=== PATIENT | female | born 1945 | race Caucasian/White ===

== ENCOUNTER 2017-01-28 00:26 | Emergency (ER) | payer OTHER ==
[2017-01-28 00:34] VITALS: BMI 24.0
--- NOTE | 2017-01-28 00:49 | PDOC ---
History of Present Illness - General History Source: Patient - History of Present Illness Initial Comments: 01/28/17 02:31 The patient is a 71-year-old female accompanied by daughter with a significant past medical history of stomach ulcers, and presents to the emergency department with chest pain and shortness of breath that worsened 2 hours prior to arrival in the ED. The patient speaks Cypriot. As per translation by the daughter, the patient reports that she has been feeling chest pain, headache, upper back pain, and right upper quadrant pain for the last 2 days, but the pains worsened in the last two hours. She reports that she feels like she couldnt breathe and feels gassy. The patient reports she had hot dogs for dinner. The patient denies palpitations, headache, and dizziness. The patient denies fever, chills, nausea, vomit, diarrhea and constipation. The patient denies dysuria, frequency, urgency and hematuria. Allergies: penicillin Past Surgical History: Social History: Denies any toxic habits PCP: Dr. Roman Bergeron <Tiffanie Ross - Last Filed: 01/28/17 02:31> <Rossy Erickson - Last Filed: 01/28/17 22:18> - General Chief Complaint: Chest Pain Stated Complaint: CHEST PAIN, SOB Time Seen by Provider: 01/28/17 00:49 Past History <Tiffanie Ross - Last Filed: 01/28/17 02:31> - Psycho/Social/Smoking Cessation Hx Suicidal Ideation: No Smoking History: Never smoked Have you smoked in the past 12 months: No Number of Cigarettes Smoked Daily: 0 Hx Alcohol Use: No Drug/Substance Use Hx: No Substance Use Type: None Hx Substance Use Treatment: No <Rossy Erickson - Last Filed: 01/28/17 22:18> - Past Medical History Allergies/Adverse Reactions: Allergies Allergy/AdvReac Type Severity Reaction Status Date / Time Penicillins Allergy Rash Verified 01/28/17 00:33 Home Medications: Ambulatory Orders Esomeprazole Magnesium [Nexium 24Hr] 20 mg PO DAILY 01/28/17 Review of Systems - Review of Systems Able to Perform ROS?: Yes Comments:: 01/28/17 02:31 CONSTITUTIONAL: Absent: fever, chills, diaphoresis, generalized weakness, malaise, loss of appetite HEENT: Absent: rhinorrhea, nasal congestion, throat pain, throat swelling, difficulty swallowing, mouth swelling, ear pain, eye pain, visual changes CARDIOVASCULAR: Present: (+) chest pain Absent: syncope, palpitations, irregular heart rate, lightheadedness, peripheral edema RESPIRATORY: Present: (+) shortness of breath Absent: cough, dyspnea with exertion, orthopnea, wheezing, stridor, hemoptysis GASTROINTESTINAL: Present: (+) abdominal pain Absent: abdominal distension, nausea, vomiting, diarrhea, constipation, melena, hematochezia GENITOURINARY: Absent: dysuria, frequency, urgency, hesitancy, hematuria, flank pain, genital pain MUSCULOSKELETAL: Present: (+) back pain Absent: myalgia, arthralgia, joint swelling SKIN: Absent: rash, itching, pallor HEMATOLOGIC/IMMUNOLOGIC: Absent: easy bleeding, easy bruising, lymphadenopathy, frequent infections ENDOCRINE: Absent: unexplained weight gain, unexplained weight loss, heat intolerance, cold intolerance NEUROLOGIC: Present: (+) headache Absent: focal weakness or paresthesias, dizziness, unsteady gait, seizure, mental status changes, bladder or bowel incontinence PSYCHIATRIC: Absent: anxiety, depression, suicidal or homicidal ideation, hallucinations. <Tiffanie Ross - Last Filed: 01/28/17 02:31> *Physical Exam - Vital Signs Last Vital Signs Temp Pulse Resp BP Pulse Ox 97.6 F 85 18 163/87 98 01/28/17 00:32 01/28/17 00:32 01/28/17 00:32 01/28/17 00:32 01/28/17 00:32 - Physical Exam Comments: 01/28/17 02:31 GENERAL: Well developed, well nourished. Awake and alert. No acute distress. HEENT: Normocephalic, atraumatic. PERRLA, EOMI. No conjunctival pallor. Sclera are non- icteric. Moist mucous membranes. Oropharynx is clear. NECK: Supple. Full ROM. No JVD. Carotid pulses 2+ and symmetric, without bruits. No thyromegaly. No lymphadenopathy. CARDIOVASCULAR: Regular rate and rhythm. No murmurs, rubs, or gallops. Distal pulses are 2+ and symmetric. PULMONARY: No evidence of respiratory distress. Lungs clear to auscultation bilaterally. No wheezing, rales or rhonchi. ABDOMINAL: Soft. Non-tender. Non-distended. No rebound or guarding. No organomegaly. Normoactive bowel sounds. MUSCULOSKELETAL Normal range of motion at all joints. No bony deformities or tenderness. No CVA tenderness. EXTREMITIES: No cyanosis. No clubbing. No edema. No calf tenderness. SKIN: Warm and dry. Normal capillary refill. No rashes. No jaundice. NEUROLOGICAL: Alert, awake, appropriate. Cranial nerves 2-12 intact. No deficits to light touch and temperature in face, upper extremities and lower extremities. No motor deficits in the in face, upper extremities and lower extremities. Normoreflexic in the upper and lower extremities. Normal speech. Toes are down- going bilaterally. Gait is normal without ataxia. PSYCHIATRIC: Cooperative. Good eye contact. Appropriate mood and affect. <Tiffanie Ross - Last Filed: 01/28/17 02:31> - Vital Signs Last Vital Signs Temp Pulse Resp BP Pulse Ox 97.6 F 85 18 163/87 98 01/28/17 00:32 01/28/17 00:32 01/28/17 00:32 01/28/17 00:32 01/28/17 00:32 <Rossy Erickson - Last Filed: 01/28/17 22:18> ED Treatment Course - LABORATORY CBC & Chemistry Diagram: 01/28/17 00:45 01/28/17 00:45 - ADDITIONAL ORDERS Additional order review: Laboratory Results 01/28/17 01/28/17 01/28/17 00:45 00:45 00:45 INR 1.13 Sodium 142 Potassium 3.8 Chloride 106 Carbon Dioxide 25 Anion Gap 11 BUN 23 H D Creatinine 0.5 L D Creat Clearance w eGFR > 60 Random Glucose 113 H Calcium 8.9 D Total Bilirubin 0.8 D AST 16 D ALT 21 D Alkaline Phosphatase 107 D Creatine Kinase 74 Troponin I < 0.02 B-Natriuretic Peptide 32.59 Total Protein 7.6 Albumin 3.8 01/28/17 00:45 RBC 3.81 MCV 94.4 MCHC 33.6 RDW 13.2 MPV 8.7 D Neutrophils % 66.4 D Lymphocytes % 28.2 D Monocytes % 4.8 Eosinophils % 0.1 D Basophils % 0.5 <Tiffanie Ross - Last Filed: 01/28/17 02:31> - LABORATORY CBC & Chemistry Diagram: 01/28/17 00:45 01/28/17 00:45 <Rossy Erickson - Last Filed: 01/28/17 22:18> Medical Decision Making - Medical Decision Making 01/28/17 22:04 Pt comes with epigastric pain that has been getting progressively worse over the past 2 days. However her BP is elevated and she is 71 years old, and she is under stress in that her left for a vacation in their hometown of [place] today. She has no Past medical history other than GERD. She had 2 cardiac enzymes and EKG and labs and cxr are normal. Pt will be cleared as she has remained stable in the ER and she is feeling better with treatment here. She has been advised to follow with her PMD. <Rossy Erickson - Last Filed: 01/28/17 22:18> *DC/Admit/Observation/Transfer - Attestations Scribe Attestion: 01/28/17 02:32 Documentation prepared by Tiffanie Ross, acting as certified court/medical interpreter for Rossy Erickson MD. <Tiffanie Ross - Last Filed: 01/28/17 02:31> - Discharge Dispostion Admit: No <Rossy Erickson - Last Filed: 01/28/17 22:18> Diagnosis at time of Disposition: GERD (gastroesophageal reflux disease), Atypical chest pain - Discharge Dispostion Disposition: HOME Condition at time of disposition: Stable - Referrals Referrals: Roman Bergeron [Primary Care Provider] - - Patient Instructions Printed Discharge Instructions: DI for Atypical Chest Pain, DI for Gastroesophageal Reflux Disease (GERD)
[2017-01-28 01:19] LABS: BASOPHIL 0.5 % (0-2.0); EOSINOPHIL 0.1 % (0-4.5); MCH 31.7 pg (25.7-33.7); MCHC 33.6 g/dl (32.0-36.0); MEAN CELL VOLUME 94.4 fl (80-96); MEAN PLT VOLUME 8.7 fl (7.5-11.1); NEUTROPHILS 66.4 % (42.8-82.8); PLATELET COUNT 265 K/MM3 (134-434); RDW 13.2 % (11.6-15.6); WHITE BLOOD COUNT 5.8 K/mm3 (4.0-10.0)
[2017-01-28 01:39] LABS: INR 1.13 (0.82-1.09); PROTHROMBIN TIME (PATIENT) 12.5 SEC (9.98-11.88)
[2017-01-28 01:47] LABS: ALBUMIN 3.8 g/dl (3.4-5.0); ANION GAP 11 (8-16); BILIRUBIN,TOTAL 0.8 mg/dL (0.2-1.0); CALCIUM 8.9 mg/dL (8.5-10.1); CO2 25 mmol/L (21-32); CREATININE 0.5 mg/dL (0.55-1.02); GLUCOSE,RANDOM 113 mg/dL (74-106); SGOT/AST 16 U/L (15-37); SGPT/ALT 21 U/L (12-78); TOT PROT 7.6 g/dl (6.4-8.2)
[2017-01-28 01:50] LABS: ALK PHOS 107 U/L (45-117); TROPONIN I < 0.02 ng/ml (0.00-0.05)
[2017-01-28] MEDS ORDERED: PANTOPRAZOLE SODIUM 80 MG in SODIUM CHLORIDE 100 ML IVPB ONE (02:29)
[2017-01-28] MEDS ORDERED: PANTOPRAZOLE SODIUM 200 ML IVPB ONE (02:33)
[2017-01-28 05:11] VITALS: BP 127/68; PULSE 73; TEMP 97.8
[2017-01-28 06:23] LABS: TROPONIN I < 0.02 ng/ml (0.00-0.05)
--- NOTE | 2017-01-29 00:05 | EKG ---
Test Reason : Blood Pressure : / mmHG Vent. Rate : 087 BPM Atrial Rate : 087 BPM P-R Int : 138 ms QRS Dur : 064 ms QT Int : 364 ms P-R-T Axes : -12 026 -11 degrees QTc Int : 438 ms NORMAL SINUS RHYTHM NONSPECIFIC ST ABNORMALITY ABNORMAL ECG WHEN COMPARED WITH ECG OF 15-MAY-2015 09:48, NO SIGNIFICANT CHANGE WAS FOUND Confirmed by LEATHA BELL MD ([id number]) on 01/29/2017 12:04:54 AM Referred By: Confirmed By:LEATHA BELL MD
== END 2017-01-28 06:39 | disposition home or self-care (01) ==
LOC: JER 00:26
PROC: 3E033GC Introduction of Other Therapeutic Substance into Peripheral Vein, Percutaneous Approach (ICD-10-PCS; principal; 2017-01-28)
DX: K21.9 Gastro-esophageal reflux disease without esophagitis (principal); R07.89 Other chest pain
CPT/HCPCS: 36415; 71010-TC; 80053; 82550; 83880; 84484; 85025; 85610; 93005; 93010; 96365; 99284-25

== ENCOUNTER 2017-07-28 20:31 | Emergency (ER) | payer OTHER ==
[2017-07-28 20:48] VITALS: TEMP 98.6; BMI 24.6
[2017-07-28] MEDS ORDERED: FAMOTIDINE 20 MG/50 ML IVPB 50 ML IVPB ONE ×2 (21:27→21:30)
[2017-07-28] MEDS ORDERED: ONDANSETRON 4 MG/2 ML VIAL IVPUSH ONE (21:27)
[2017-07-28] MEDS ORDERED: BISMUTH SUBSALICYLATE 262 MG/15 ML BTL PO ONE (21:27)
[2017-07-28] MEDS ORDERED: SODIUM CHLORIDE 1,000 ML IV STA (21:28)
--- NOTE | 2017-07-28 21:28 | PDOC ---
History of Present Illness - General Chief Complaint: Nausea Stated Complaint: STOMACH PAIN Time Seen by Provider: 07/28/17 20:43 History Source: Patient Exam Limitations: No Limitations Past History - Past Medical History Allergies/Adverse Reactions: Allergies Allergy/AdvReac Type Severity Reaction Status Date / Time Penicillins Allergy Rash Verified 07/28/17 20:44 Home Medications: Ambulatory Orders Esomeprazole Magnesium [Nexium 24Hr] 20 mg PO DAILY 01/28/17 - Suicide/Smoking/Psychosocial Hx Smoking History: Never smoked Have you smoked in the past 12 months: No Number of Cigarettes Smoked Daily: 0 Hx Alcohol Use: No Drug/Substance Use Hx: No Substance Use Type: None Hx Substance Use Treatment: No Review of Systems - Review of Systems Able to Perform ROS?: Yes Comments:: 07/29/17 07:29 CONSTITUTIONAL: Absent: fever, chills, diaphoresis, generalized weakness, malaise, loss of appetite HEENT: Absent: rhinorrhea, nasal congestion, throat pain, throat swelling, difficulty swallowing, mouth swelling, ear pain, eye pain, visual Changes CARDIOVASCULAR: Absent: chest pain, loss of consciousness, palpitations, irregular heart rate, peripheral edema RESPIRATORY: Absent: cough, shortness of breath, dyspnea with exertion, orthopnea, wheezing, stridor, hemoptysis GASTROINTESTINAL: Absent: abdominal pain, abdominal distension, nausea, vomiting, diarrhea, constipation, melena, hematochezia GENITOURINARY: Absent: dysuria, frequency, urgency, hesitancy, hematuria, flank pain, genital pain MUSCULOSKELETAL: Absent: myalgia, arthralgia, joint swelling SKIN: Absent: rash, itching, pallor HEMATOLOGIC/IMMUNOLOGIC: Absent: easy bleeding, easy bruising, lymphadenopathy, frequent infections ENDOCRINE: Absent: unexplained weight gain, unexplained weight loss, heat intolerance, cold intolerance NEUROLOGIC: Absent: headache, focal weakness or paresthesias, dizziness, unsteady gait, seizure, mental status changes, bladder or bowel incontinence PSYCHIATRIC: Absent: anxiety, depression, suicidal or homicidal ideation, hallucinations. Is the patient limited Nepalese proficient: No *Physical Exam - Vital Signs Last Vital Signs Temp Pulse Resp BP Pulse Ox 98.6 F 103 H 16 132/80 98 07/28/17 20:44 07/28/17 20:44 07/28/17 20:44 07/28/17 20:44 07/28/17 20:44 - Physical Exam Comments: 07/29/17 07:29 GENERAL: Well developed, well nourished. Awake and alert. No acute distress. HEENT: Normocephalic, atraumatic. PERRLA, EOMI. No conjunctival pallor. Sclera are non- icteric. Moist mucous membranes. Oropharynx is clear. NECK: Supple. Full ROM. No JVD. Carotid pulses 2+ and symmetric, without bruits. No thyromegaly. No lymphadenopathy. CARDIOVASCULAR: Regular rate and rhythm. No murmurs, rubs, or gallops. Distal pulses are 2+ and symmetric. PULMONARY: No evidence of respiratory distress. Lungs clear to auscultation bilaterally. No wheezing, rales or rhonchi. ABDOMINAL: Soft. Non-tender. Non-distended. No rebound or guarding. No organomegaly. Normoactive bowel sounds. MUSCULOSKELETAL Normal range of motion at all joints. No bony deformities or tenderness. No CVA tenderness. EXTREMITIES: No cyanosis. No clubbing. No edema. No calf tenderness. SKIN: Warm and dry. Normal capillary refill. No rashes. No jaundice. NEUROLOGICAL: Alert, awake, appropriate. Cranial nerves 2-12 intact. No deficits to light touch and temperature in face, upper extremities and lower extremities. No motor deficits in the in face, upper extremities and lower extremities. Normoreflexic in the upper and lower extremities. Normal speech. Toes are down- going bilaterally. Gait is normal without ataxia. PSYCHIATRIC: Cooperative. Good eye contact. Appropriate mood and affect. ED Treatment Course - LABORATORY CBC & Chemistry Diagram: 07/28/17 21:41 07/28/17 21:41 *DC/Admit/Observation/Transfer Diagnosis at time of Disposition: GERD (gastroesophageal reflux disease) Qualifiers: Esophagitis presence: with esophagitis Qualified Code(s): K21.0 - Gastro- esophageal reflux disease with esophagitis - Discharge Dispostion Admit: No - Referrals Referrals: Carlos Abreu MD [Staff Physician] - - Patient Instructions Printed Discharge Instructions: DI for Gastritis, DI for Gastroesophageal Reflux Disease (GERD), GERD Diet Additional Instructions: You have gastritis, with reflux. It is important that you continue taking your home dose of Nexium. You were prescribed Zantac as well. Take this medication twice a day for the reflux. Drink plenty of water. 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 Return to the ED if you have worsening pain, nausea, vomiting, or any changes in your symptoms Usted tiene gastritis, con reflujo. Es importante que contine tomando torres dosis casera de Nexium. Tambin te recetaron Zantac. [place] indira medicamento dos veces al da para el reflujo. Beber abundante agua. Seguimiento con torres gastroenter logo el . Regrese al departamento de emergencias si tiene un empeoramiento del dolor, n useas, vmitos o cualquier cambio en kita sntomas Print Language: BULGARIAN
[2017-07-28] MEDS ORDERED: ONDANSETRON 4 MG/2 ML VIAL ONE (21:30)
[2017-07-28 21:49] LABS: BASOPHIL 0.3 % (0-2.0); EOSINOPHIL 0.2 % (0-4.5); MCH 32.6 pg (25.7-33.7); MCHC 34.5 g/dl (32.0-36.0); MEAN CELL VOLUME 94.6 fl (80-96); MEAN PLT VOLUME 8.6 fl (7.5-11.1); NEUTROPHILS 84.3 % (42.8-82.8); PLATELET COUNT 265 K/MM3 (134-434); RDW 12.9 % (11.6-15.6); WHITE BLOOD COUNT 7.3 K/mm3 (4.0-10.0)
[2017-07-28 21:57] LABS: URINE APPEARANCE CLEAR; URINE BILIRUBIN NEGATIVE (NEGATIVE); URINE BLOOD NEGATIVE (NEGATIVE); URINE COLOR LTYELLOW; URINE GLUCOSE (UA) NEGATIVE (NEGATIVE); URINE KETONE NEGATIVE (NEGATIVE); URINE NITRITE NEGATIVE (NEGATIVE); URINE PROTEIN NEGATIVE (NEGATIVE); URINE UROBILINOGEN NEGATIVE mg/dL (0.2-1.0)
[2017-07-28 21:59] LABS: INR 1.09 (0.82-1.09); PROTHROMBIN TIME (PATIENT) 12.3 SEC (9.98-11.88)
[2017-07-28 22:09] LABS: ALBUMIN 3.7 g/dl (3.4-5.0); ANION GAP 5 (8-16); BILIRUBIN,TOTAL 0.9 mg/dL (0.2-1.0); CALCIUM 8.2 mg/dL (8.5-10.1); CO2 28 mmol/L (21-32); CREATININE 0.5 mg/dL (0.55-1.02); GLUCOSE,RANDOM 121 mg/dL (74-106); SGOT/AST 13 U/L (15-37); SGPT/ALT 19 U/L (12-78); TOT PROT 7.5 g/dl (6.4-8.2)
[2017-07-28 22:10] LABS: ALK PHOS 117 U/L (45-117)
[2017-07-28 22:17] LABS: CPK 45 IU/L (26-192)
[2017-07-28 22:18] LABS: TROPONIN I < 0.02 ng/ml (0.00-0.05)
--- NOTE | 2017-07-28 22:42 | PDOC ---
*Physical Exam - Vital Signs Last Vital Signs Temp Pulse Resp BP Pulse Ox 98.6 F 103 H 16 132/80 98 07/28/17 20:44 07/28/17 20:44 07/28/17 20:44 07/28/17 20:44 07/28/17 20:44 Heart Score/ECG Review #1 ECG reviewed & interpreted by me at: 22:00 07/28/17 22:42 NSR 88, no std/rtudi, TWI III, normal axis, normal intervals, QTC 442 msec ED Treatment Course - LABORATORY CBC & Chemistry Diagram: 07/28/17 21:41 07/28/17 21:41 - ADDITIONAL ORDERS Additional order review: Laboratory Results 07/28/17 07/28/17 07/28/17 21:51 21:41 21:41 PT with INR INR Sodium Potassium Chloride Carbon Dioxide Anion Gap BUN Creatinine Creat Clearance w eGFR Random Glucose Calcium Total Bilirubin AST ALT Alkaline Phosphatase Creatine Kinase 45 Troponin I < 0.02 Total Protein Albumin Lipase 88 Urine Color Ltyellow Urine Appearance Clear Urine pH 7.0 Urine Protein Negative Urine Glucose (UA) Negative Urine Ketones Negative Urine Blood Negative Urine Nitrite Negative Urine Bilirubin Negative Urine Urobilinogen Negative 07/28/17 07/28/17 21:41 21:41 PT with INR 12.30 H INR 1.09 Sodium 139 Potassium 3.7 Chloride 106 Carbon Dioxide 28 Anion Gap 5 L BUN 11 D Creatinine 0.5 L Creat Clearance w eGFR > 60 Random Glucose 121 H Calcium 8.2 L Total Bilirubin 0.9 AST 13 L ALT 19 Alkaline Phosphatase 117 Creatine Kinase Troponin I Total Protein 7.5 Albumin 3.7 Lipase Urine Color Urine Appearance Urine pH Urine Protein Urine Glucose (UA) Urine Ketones Urine Blood Urine Nitrite Urine Bilirubin Urine Urobilinogen 07/28/17 21:41 RBC 3.89 MCV 94.6 MCHC 34.5 RDW 12.9 MPV 8.6 Neutrophils % 84.3 H D Lymphocytes % 11.2 D Monocytes % 4.0 Eosinophils % 0.2 D Basophils % 0.3 - Medications Given in the ED: ED Medications Discontinued Medications Generic Name Dose Route Start Last Admin Trade Name Freq PRN Reason Stop Dose Admin Famotidine/Sodium Chloride 50 mls @ 100 mls/hr 07/28/17 21:27 07/28/17 21:46 Pepcid 20 Mg Premixed Ivpb - IVPB 07/28/17 21:56 100 mls/hr ONCE ONE Administration Sodium Chloride 1,000 mls @ 1,000 mls/hr 07/28/17 21:28 07/28/17 21:46 Normal Saline - IV 07/28/17 22:27 1,000 mls/hr ASDIR STA Administration Ondansetron HCl 4 mg 07/28/17 21:27 07/28/17 21:46 Zofran Injection IVPUSH 07/28/17 21:28 4 mg ONCE ONE Administration Medical Decision Making - Medical Decision Making 07/28/17 22:39 Pt seen by the Advanced Practice Provider under my direct supervision Pt interviewed and examined Ancillary studies reviewed I agree with plan as outlined by the Advanced Practice Provider [email or web address] Sims Vital Signs Temp Pulse Resp BP Pulse Ox 98.6 F 103 H 16 132/80 98 07/28/17 20:44 07/28/17 20:44 07/28/17 20:44 07/28/17 20:44 07/28/17 20:44 72-year-old female with past medical history of GERD presents with epigastric pain approximately one hour prior to arrival. The patient reports she was doing nothing in particular when she started developing this epigastric like burning pain. She states that this pain radiates towards her whole diffuse abdomen. Denies nausea, vomiting, diarrhea. Denies fevers or chills. The pain is constant and is not relieved and came to the ED. ABD: soft, TTP epigastric. no rebound, no guarding. Cardozo sign negative The patient overall is nontender but does have some discomfort elicited at the epigastrium. However, the patient does report of having diffuse abdominal discomfort. Differential includes gastritis, biliary colic, pancreatitis, other acute abdominal pathology. We'll trial GERD medications obtain a CT scan labs. Given the abdominal tenderness, I suspect that this is more GI and unlikely to be cardiac. ECG is reassuring and troponin is negativel. 07/29/17 00:26 CBC, BMP 07/28/17 21:41 07/28/17 21:41 CMP Sodium 139 mmol/L (136-145) 07/28/17 21:41 Potassium 3.7 mmol/L (3.5-5.1) 07/28/17 21:41 Chloride 106 mmol/L (98-107) 07/28/17 21:41 Carbon Dioxide 28 mmol/L (21-32) 07/28/17 21:41 Anion Gap 5 (8-16) L 07/28/17 21:41 BUN 11 mg/dL (7-18) D 07/28/17 21:41 Creatinine 0.5 mg/dL (0.55-1.02) L 07/28/17 21:41 Creat Clearance w eGFR > 60 (>60) 07/28/17 21:41 Random Glucose 121 mg/dL (74-106) H 07/28/17 21:41 Calcium 8.2 mg/dL (8.5-10.1) L 07/28/17 21:41 Total Bilirubin 0.9 mg/dL (0.2-1.0) 07/28/17 21:41 AST 13 U/L (15-37) L 07/28/17 21:41 ALT 19 U/L (12-78) 07/28/17 21:41 Alkaline Phosphatase 117 U/L (45-117) 07/28/17 21:41 Creatine Kinase 45 IU/L (26-192) 07/28/17 21:41 Troponin I < 0.02 ng/ml (0.00-0.05) 07/28/17 21:41 Total Protein 7.5 g/dl (6.4-8.2) 07/28/17 21:41 Albumin 3.7 g/dl (3.4-5.0) 07/28/17 21:41 Lipase 88 U/L (73-393) 07/28/17 21:41 Urine Test Results Urine Color Ltyellow 07/28/17 21:51 Urine Appearance Clear 07/28/17 21:51 Urine pH 7.0 (5.0-8.0) 07/28/17 21:51 Ur Specific [place] 1.010 (1.005-1.025) 07/28/17 21:51 Urine Protein Negative (NEGATIVE) 07/28/17 21:51 Urine Glucose (UA) Negative (NEGATIVE) 07/28/17 21:51 Urine Ketones Negative (NEGATIVE) 07/28/17 21:51 Urine Blood Negative (NEGATIVE) 07/28/17 21:51 Urine Nitrite Negative (NEGATIVE) 07/28/17 21:51 Urine Bilirubin Negative (NEGATIVE) 07/28/17 21:51 Ur Leukocyte Esterase Trace (NEGATIVE) H 07/28/17 21:51 CT scan demonstrates: thickened distal thoracic esophagus may reflect a component of esophagitis. It may be possible secondary to GERD. If patient's GERD is better with GERD medications, will d/c with GI follow up with outpatient endoscopy.
[2017-07-28 23:29] LABS: URINE LEUK ESTERASE TRACE (NEGATIVE)
[2017-07-29 01:20] VITALS: BP 138/83; PULSE 93
--- NOTE | 2017-07-29 09:05 | EKG ---
Test Reason : Blood Pressure : / mmHG Vent. Rate : 088 BPM Atrial Rate : 088 BPM P-R Int : 128 ms QRS Dur : 064 ms QT Int : 366 ms P-R-T Axes : 015 006 010 degrees QTc Int : 442 ms NORMAL SINUS RHYTHM NORMAL ECG WHEN COMPARED WITH ECG OF 28-JAN-2017 00:46, NO SIGNIFICANT CHANGE WAS FOUND Confirmed by SHIRLEY PIÑA MD ([id number]) on 07/29/2017 9:04:55 AM Referred By: Confirmed By:SHIRLEY PIÑA MD
== END 2017-07-29 01:20 | disposition home or self-care (01) ==
LOC: JER 20:31
PROC: 3E0337Z Introduction of Electrolytic and Water Balance Substance into Peripheral Vein, Percutaneous Approach (ICD-10-PCS; principal; 2017-07-28)
PROC: 3E033GC Introduction of Other Therapeutic Substance into Peripheral Vein, Percutaneous Approach (ICD-10-PCS; 2017-07-28)
PROC: 3E033GC Introduction of Other Therapeutic Substance into Peripheral Vein, Percutaneous Approach (ICD-10-PCS; 2017-07-28)
DX: K21.9 Gastro-esophageal reflux disease without esophagitis (principal)
CPT/HCPCS: 36415; 74177-TC; 80053; 81003; 81015; 82550; 83690; 84484; 85025; 85610; 87086; 93005; 93010; 96361; 96365; 96375; 99282-25

== ENCOUNTER 2019-03-17 21:59 | Emergency (ER) | payer OTHER ==
[2019-03-17 22:14] VITALS: BMI 26.9
--- NOTE | 2019-03-17 22:15 | PDOC ---
History of Present Illness - General Chief Complaint: Pain Stated Complaint: ABDOMINAL PAIN/LEFT SIDE Time Seen by Provider: 03/17/19 22:15 - History of Present Illness Initial Comments: 03/17/19 22:16 Ms. Bryant is a 73 yo female w/ pmh of esophagitis, reflux, and stomach ulcers who presents for evaluation of sudden onset LLQ abdominal pain she reports is radiating to her L flank since 4pm today. Patient reports it has been intermittently painful since it started. She took 2 advil at that time however reports no improvement of pain. Ms. Bryant reports pain is 8/10 when it is flaring up. Last BM was yesterday and normal. Patient denies any other associated symptoms at this time. The patient denies chest pain, shortness of breath, headache and dizziness. Denies fever, chills, nausea, vomit, diarrhea and constipation. Denies dysuria, frequency, urgency and hematuria. Past History - Past Medical History Allergies/Adverse Reactions: Allergies Allergy/AdvReac Type Severity Reaction Status Date / Time Penicillins Allergy Rash Verified 03/17/19 22:14 Home Medications: Ambulatory Orders Esomeprazole Magnesium [Nexium 24Hr] 20 mg PO DAILY 01/28/17 Sulfamethoxazole/Trimethoprim [Bactrim Ds -] 1 tab PO BID #14 tablet 03/18/19 COPD: No - Suicide/Smoking/Psychosocial Hx Smoking History: Never smoked Have you smoked in the past 12 months: No Number of Cigarettes Smoked Daily: 0 Information on smoking cessation initiated: No Hx Alcohol Use: No Drug/Substance Use Hx: No Substance Use Type: None Hx Substance Use Treatment: No Review of Systems - Review of Systems Comments:: 03/17/19 22:17 GENERAL/CONSTITUTIONAL: No fever or chills. No weakness. HEAD, EYES, EARS, NOSE AND THROAT: No change in vision. No ear pain or discharge. No sore throat. CARDIOVASCULAR: No chest pain or shortness of breath RESPIRATORY: No cough, wheezing, or hemoptysis. GASTROINTESTINAL: +LLQ pain radiating to L flank. No nausea, vomiting, diarrhea or constipation. GENITOURINARY: No dysuria, frequency, or change in urination. MUSCULOSKELETAL: No joint or muscle swelling or pain. No neck or back pain. SKIN: No rash NEUROLOGIC: No headache, vertigo, loss of consciousness, or change in strength/ sensation. ENDOCRINE: No increased thirst. No abnormal weight change HEMATOLOGIC/LYMPHATIC: No anemia, easy bleeding, or history of blood clots. ALLERGIC/IMMUNOLOGIC: No hives or skin allergy. *Physical Exam - Vital Signs Last Vital Signs Temp Pulse Resp BP Pulse Ox 98.5 F 87 18 163/85 100 03/17/19 22:12 03/17/19 22:12 03/17/19 22:12 03/17/19 22:12 03/17/19 22:12 - Physical Exam Comments: 03/17/19 22:17 GENERAL: Awake, alert, and fully oriented, in no acute distress HEAD: No signs of trauma, normocephalic, atraumatic EYES: PERRLA, EOMI, sclera anicteric, conjunctiva clear ENT: Auricles normal inspection, hearing grossly normal, nares patent, oropharynx clear without exudates. Moist mucosa NECK: Normal ROM, supple, no lymphadenopathy, JVD, or masses LUNGS: No distress, speaks full sentences, clear to auscultation bilaterally HEART: Regular rate and rhythm, normal S1 and S2, no murmurs, rubs or gallops, peripheral pulses normal and equal bilaterally. ABDOMEN: +LLQ TTP. L flank tenderness. Soft, normoactive bowel sounds. No guarding, no rebound. No masses EXTREMITIES: Normal inspection, Normal range of motion, no edema. No clubbing or cyanosis. NEUROLOGICAL: Cranial nerves II through XII grossly intact. Normal speech, normal gait, no focal sensorimotor deficits SKIN: Warm, Dry, normal turgor, no rashes or lesions noted. ED Treatment Course - LABORATORY CBC & Chemistry Diagram: 03/17/19 22:30 03/17/19 22:30 Medical Decision Making - Medical Decision Making 03/17/19 22:34 Ms. Bryant is a 73 yo female w/ pmh as described who presents for evaluation of symptoms concerning for UTI vs. pyelo vs. nephrolithiasis. Patient workup started with CBC/CMP for evaluation of infectious vs. electrolyte abnormalities as well as UA/UCx for r/o UTI vs. nephrolithiasis. CT Spiral ordered for evaluation of possible kidney stone. Toradol given for pain control. 03/18/19 00:54 Patient reporting relief from pain at this time. UA c/w nephrolithiasis/UTI as below. CT significant for mild left hydronephrosis and perinephric inflammation due to 3mm distal UVJ stone. Left adrenal adenoma and small hiatal hernia also noted. Patient alert and oriented. Able to tolerate PO. IV ABX given in ED. Will discharge with oral ABX and urology follow-up. No concern for emergent process at this time. Discharging to home. Laboratory Results - last 24 hr 03/17/19 03/17/19 03/17/19 22:30 22:30 22:30 WBC 8.0 RBC 3.72 Hgb 11.9 Hct 35.5 MCV 95.6 MCH 32.1 MCHC 33.6 RDW 13.3 Plt Count 307 MPV 8.8 Absolute Neuts (auto) 6.3 Neutrophils % 78.6 Lymphocytes % 15.5 D Monocytes % 5.4 Eosinophils % 0.2 Basophils % 0.3 Nucleated RBC % 0 PT with INR 12.50 INR 1.06 PTT (Actin FS) 31.3 Sodium Potassium Chloride Carbon Dioxide Anion Gap BUN Creatinine Est GFR (CKD-EPI)AfAm Est GFR (CKD-EPI)NonAf Random Glucose Calcium Total Bilirubin AST ALT Alkaline Phosphatase Total Protein Albumin Urine Color Yellow Urine Appearance Clear Urine pH 6.0 Ur Specific [place] 1.032 Urine Protein Trace Urine Glucose (UA) 2+ H Urine Ketones Trace H Urine Blood 2+ H Urine Nitrite Negative Urine Bilirubin Negative Urine Urobilinogen 1.0 Ur Leukocyte Esterase 2+ H Urine WBC (Auto) 107 Urine RBC (Auto) 37 Urine Casts (Auto) 29 U Pathogenic Cast Auto No Result Required. U Epithel Cells (Auto) 0.7 U Sm Round Cell (Auto) No Result Required. Urine Crystals (Auto) No Result Required. Urine Bacteria (Auto) 127.5 03/17/19 22:30 WBC RBC Hgb Hct MCV MCH MCHC RDW Plt Count MPV Absolute Neuts (auto) Neutrophils % Lymphocytes % Monocytes % Eosinophils % Basophils % Nucleated RBC % PT with INR INR PTT (Actin FS) Sodium 142 Potassium 4.1 Chloride 109 H Carbon Dioxide 25 Anion Gap 8 BUN 19.5 H Creatinine 1.0 Est GFR (CKD-EPI)AfAm 65.18 Est GFR (CKD-EPI)NonAf 56.24 Random Glucose 165 H Calcium 8.5 Total Bilirubin 0.4 AST 15 ALT 18 Alkaline Phosphatase 104 Total Protein 7.5 Albumin 3.8 Urine Color Urine Appearance Urine pH Ur Specific [place] Urine Protein Urine Glucose (UA) Urine Ketones Urine Blood Urine Nitrite Urine Bilirubin Urine Urobilinogen Ur Leukocyte Esterase Urine WBC (Auto) Urine RBC (Auto) Urine Casts (Auto) U Pathogenic Cast Auto U Epithel Cells (Auto) U Sm Round Cell (Auto) Urine Crystals (Auto) Urine Bacteria (Auto) *DC/Admit/Observation/Transfer Diagnosis at time of Disposition: Nephrolithiasis - Discharge Dispostion Disposition: HOME - Prescriptions Prescriptions: Sulfamethoxazole/Trimethoprim [Bactrim Ds -] 1 tab PO BID #14 tablet - Referrals Referrals: Roman Bergeron [Primary Care Provider] - Baldomero Faye MD., [Staff Physician] - - Patient Instructions Printed Discharge Instructions: DI for Kidney Stones Additional Instructions: You were evaluated today in the ER and found to have a kidney stone on CT. Your symptoms improved with pain control and we believe you should pass the stone as it is only 3mm in size. We have provided you with urology information that you may use for follow-up as needed. We have also sent a prescription to your pharmacy for a urinary tract infection. Please take all medications as proscribed. You may also take over the counter motrin or tylenol per package instructions for pain control. Please make sure to follow-up with primary care provider with 2-3 days for further evaluation. Return to ER if any fever, chills , difficulty urinating, increase in pain, or other concerning symptoms. Fue evaluado hoy en la everardo de emergencias y se descubri que jamar un clculo renal en la TC. Ericka sntomas mejoraron con el control del dolor y creemos que debe pasar la boo, ya que solo mide 3 mm. Le hemos proporcionado informacin de urologa que puede utilizar para el seguimiento segn sea necesario. Ptaricia hemos enviado shashank receta a torres farmacia para shashank infeccin del tracto urinario. Por favor, tome todos los medicamentos lida proscribe. Patricia puede jorge luis el contador de motrin o tylenol segn las instrucciones del paquete para controlar el dolor. Asegrese de hacer un seguimiento con el proveedor de atencin primaria con 2-3 bower para shashank evaluacin adicional. Regrese a la everardo de emergencias si tiene fiebre, escalofros, dificultad para orinar, aumento del dolor u otros sntomas relacionados. - Post Discharge Activity
[2019-03-17] MEDS ORDERED: SODIUM CHLORIDE 1,000 ML IV STA (22:25)
[2019-03-17] MEDS ORDERED: KETOROLAC TROMETHAMINE 15 MG/ML VIAL IVPUSH ONE (22:26)
[2019-03-17] MEDS ORDERED: KETOROLAC TROMETHAMINE 15 MG/ML VIAL ONE (22:41)
[2019-03-17 23:16] LABS: BASO % 0.3 % (0-2.0); EOS % 0.2 % (0-4.5); HEMATOCRIT 35.5 % (32.4-45.2); HEMOGLOBIN 11.9 GM/dL (10.7-15.3); LYMPH % 15.5 % (8-40); MCH 32.1 pg (25.7-33.7); MCHC 33.6 g/dl (32.0-36.0); MEAN CELL VOLUME 95.6 fl (80-96); MEAN PLT VOLUME 8.8 fl (7.5-11.1); MONO % 5.4 % (3.8-10.2); NEUT % 78.6 % (42.8-82.8); PLATELET COUNT 307 K/MM3 (134-434); RBC 3.72 M/mm3 (3.60-5.2); RDW 13.3 % (11.6-15.6)
[2019-03-17 23:20] LABS: EPI CELLS 0.7 /HPF (0-5/HPF); HYALINE CASTS 29 /lpf (0-8); URINE APPEARANCE CLEAR; URINE BACTERIA 127.5 /hpf (NEGATIVE); URINE BILIRUBIN NEGATIVE (NEGATIVE); URINE COLOR YELLOW; URINE GLUCOSE (UA) 2+ (NEGATIVE); URINE KETONE TRACE (NEGATIVE); URINE LEUK ESTERASE 2+ (NEGATIVE); URINE NITRITE NEGATIVE (NEGATIVE); URINE PROTEIN TRACE (NEGATIVE); URINE RBC 37 /hpf (0-4); URINE WBC 107 /hpf (0-5)
[2019-03-17 23:26] LABS: INR 1.06 (0.83-1.09); PROTHROMBIN TIME (PATIENT) 12.5 SEC (9.7-13.0)
[2019-03-17 23:28] LABS: ACTIVATED PTT 31.3 SECONDS (25.2-36.5)
[2019-03-17 23:37] LABS: ALBUMIN 3.8 g/dl (3.4-5.0); BILIRUBIN,TOTAL 0.4 mg/dL (0.2-1); BLOOD UREA NITROGEN 19.5 mg/dL (7-18); CALCIUM 8.5 mg/dL (8.5-10.1); POTASSIUM 4.1 mmol/L (3.5-5.1); TOT PROT 7.5 g/dl (6.4-8.2)
--- NOTE | 2019-03-18 00:13 | PDOC ---
Documentation entered by Guzman Diaz SCRIBE, acting as scribe for Lashonda Herrera MD. Lashonda Herrera MD: This documentation has been prepared by the Joe calloway Joel, SCRIBE, under my direction and personally reviewed by me in its entirety. I confirm that the documentation accurately reflects all work, treatment, procedures, and medical decision making performed by me. Attending Attestation - Resident Resident Name: Jose M Albarado - ED Attending Attestation I have performed the following: I have examined & evaluated the patient, The case was reviewed & discussed with the resident, I agree w/resident's findings & plan, Exceptions are as noted - HPI HPI: 03/17/19 23:03 The patient is a 73 year old female with a significant PMH of stomach ulcers, esophagitis, & reflux who presents to the emergency department with LLQ abdominal pain beginning approximately 7 hours ago. She describes her abdominal pain as an intermittent sensation localized in the LLQ with radiation to the left flank, 8/10 in severity at its worst. The patient denies chest pain, shortness of breath, headache and dizziness. Denies fever, chills, nausea, vomit, diarrhea and constipation. Denies dysuria, frequency, urgency and hematuria. Allergies: Penicillins Social history: No reported cigarette, alcohol, or drug use. PCP: Dr. Umer Bergeron - Physicial Exam PE: 03/18/19 00:09 73 yo female developed left flank pain today at 4 pm head ncat neck supple lungs cta b/l cvs [id number] abd no guarding,no rebound L flank pain skin warm and dry extremities no edema skin warm and dry neuro alert and conversant - Medical Decision Making 03/18/19 00:13 Concern for kidney stones will obtain ct scan .labs,UA 03/18/19 01:[address] scan (spiral) pt has small 3mm uvj stone and mild hydronephrosis found on ct scan. she was started on antibiotics and urology referral
[2019-03-18] MEDS ORDERED: CEFTRIAXONE 1,000 MG in DEXTROSE 5%-WATER - 50 ML IVPB ONE (00:26)
[2019-03-18] MEDS ORDERED: CEFTRIAXONE 1 GM/50 ML BAG ONE (01:02)
[2019-03-18 01:31] VITALS: BP 158/86; PULSE 84; TEMP 98.2
== END 2019-03-18 01:49 | disposition home or self-care (01) ==
LOC: JER 21:59
PROC: 3E0337Z Introduction of Electrolytic and Water Balance Substance into Peripheral Vein, Percutaneous Approach (ICD-10-PCS; principal; 2019-03-17)
PROC: 3E03329 Introduction of Other Anti-infective into Peripheral Vein, Percutaneous Approach (ICD-10-PCS; 2019-03-17)
PROC: 3E0333Z Introduction of Anti-inflammatory into Peripheral Vein, Percutaneous Approach (ICD-10-PCS; 2019-03-17)
DX: N13.2 Hydronephrosis with renal and ureteral calculous obstruction (principal)
CPT/HCPCS: 36415; 74176-TC; 80053; 81003; 85025; 85610; 85730; 87086; 87186; 96361; 96365; 96375; 99282-25; J7030